=== PATIENT | male | born 1940 | race Caucasian/White ===

== ENCOUNTER 2020-10-10 14:28 | Observation (INO) | payer MEDICARE ==
[~2020-10-10] VITALS: Ht 172.7 cm; Wt 77.4 kg
[2020-10-10] MEDS ORDERED: ASPIRIN81 MG PO (14:49)
[2020-10-10] MEDS ORDERED: METOPROLOL SUCC50 MG PO (14:50)
[2020-10-10] MEDS ORDERED: LOMOTIL TABLET1 EACH PO (14:51)
[2020-10-10] MEDS ORDERED: FLOMAX0.4 MG PO (14:51)
[2020-10-10] MEDS ORDERED: ZESTRIL40 MG PO (17:12)
[2020-10-10] MEDS ORDERED: TRAZODONE HCL50 MG PO (17:13)
[2020-10-10] MEDS ORDERED: NEURONTIN600 MG PO (17:13)
[2020-10-10] MEDS ORDERED: ATORVASTATIN CA40 MG PO (17:14)
[2020-10-10] MEDS ORDERED: PROSCAR5 MG PO (17:14)
--- NOTE | 2020-10-10 20:12 | NUR ---
10/10/202011 Mayberry,Annabella Doherty 2010: O2 MASK OFF. PATIENT ON ROOM AIR. DENIES PAIN.
--- NOTE | 2020-10-10 20:53 | NUR ---
PT TO ROOM 112 WITH PACU NURSE. ALERT AND ORIENTED. DENIES PAIN OR NAUSEA. LAP SITES X 3 WITH GAUZE AND TAPE INTACT. SMALL AMOUNT DRAINAGE FROM UMBILICUS. SCD'S IN PLACE. IVF INFUSING. ASSESSMENT COMPLETE. PT ORIENTED TO ROOM AND NURSE CALL LIGHT. PT DENIES QUESTIONS OR CONCERNS. CALL LIGHT IN REACH.
--- NOTE | 2020-10-10 20:55 | NUR ---
PT REMOVED HEARING AIDES, STATING HE DID NOT BRING THE DECOMMISSIONING WELL SITE MANAGER. PLUGGED IN PHONE DECOMMISSIONING WELL SITE MANAGER. PT HAD BEEN HEARD ON THE PHONE TELLING SOMEONE THAT HE IS NOT HAVING ANY PAIN, AND "HOPES TO GO HOME TOMORROW". ALL PERSONAL SUPPLIES WITHIN REACH AT THIS TIME. EDUCATED ON THE CALL LIGHT, AND EDUCATED HIM ON NOT GETTING UP WITHOUT STAFF AT THIS TIME. STATED LESS THAN HAPPY WITH NO BEING ABLE TO GET UP ON HIS OWN" REPORTED TO PT RN.
--- NOTE | 2020-10-10 21:45 | NUR ---
POST OP VS DONE. PT REPORTS PAIN TOLERABLE, DENIES PRN FOR PAIN. DENIES NAUSEA. IV ABX INFUSING. CLEAR LIQUIDS PROVIDED.
--- NOTE | 2020-10-10 23:15 | NUR ---
POST OP VS DONE. PT UP TO AMB ONE LAP AROUND NURSING UNIT. GIDEON WELL. RATES ABD PAIN 08/02. DENIES PRN FOR PAIN AT THIS TIME. DENIES NAUSEA. TO BR TO VOID 150 CONCENTRATED URINE. BACK TO BED. SCD'S IN PLACE. IVF INFUSING ORDERED. NO FURTHER NEEDS. CALL LIGHT IN REACH.
--- NOTE | 2020-10-10 23:58 | NUR ---
OFFER PT SOMETHING IN FULL LIQUIDS, CHOSE VANILLA PUDDING. POST SURGERY VITALS COMPLETE. DENIES NEED FOR PAIN MEDICATIONS.
--- NOTE | 2020-10-11 01:25 | NUR ---
PT AWAKE IN BED. IV PUMP ALARMING. UP TO AMB ONE LAP AROUND NURSING UNIT. GAIT STEADY. TO BR TO VOID. BACK TO BED, GIDEON WELL. FULL LIQUIDS PROVIDED. PT DENIES PAIN OR NAUSEA. NO FURTHER NEEDS.
--- NOTE | 2020-10-11 02:35 | NUR ---
PT AWAKENED FOR VS. DENIES PAIN OR NAUSEA. SCD'S IN PLACE. IVF INFUSING.
--- NOTE | 2020-10-11 05:57 | CONS ---
[facility] [address], [place] [address] Signed DATE OF CONSULTATION: 10/10/2020 CHIEF COMPLAINT: Right lower quadrant abdominal pain. HISTORY OF PRESENT ILLNESS: Radu is an 80-year-old retired gentleman, who came through our area on his way to [place]. He is on the way back in his motor home with his . His had gotten COVID early in the year and was quite sick. She can barely walk, but she is able to travel with him. He wad tested positive for COVID back in May 2020. He never seemed to really have any symptoms. In the meantime, he has received the Moderna COVID vaccine. This morning, he woke up with periumbilical pain and is now localized to the right lower quadrant. He came to the local emergency room for evaluation. White count was elevated at 12.4. Other labs are negative. His repeat COVID test is still pending, although it has been sent to the lab. He had a CT scan of abdomen and pelvis done and sure enough he does have a dilated thickened appendix along with stone in the appendix and a small umbilical hernia. Therefore, I was asked to see him as a general surgeon on-call here in the emergency room. He did receive Rocephin and Flagyl. PAST MEDICAL HISTORY: Umbilical hernia, diverticulosis, melanoma, and COVID in May 2020. PAST SURGICAL HISTORY: Includes a cholecystectomy, a total left knee replacement, left elbow surgery, and tonsils. SOCIAL HISTORY: He does not smoke. He likes to drink every day. He is a retired longshoreman. He is to his , Alejandro at [phone]. Dr. Luis Hollis is his primary care provider in [place], [place] associated with [place], [place]. They have two children. FAMILY HISTORY: Brother suddenly in 2017. Mother had liver cancer. Dad had stroke. REVIEW OF SYSTEMS: He had 10 systems reviewed. He mentioned his left knee replacement. ALLERGIES: None. MEDICATIONS: Aspirin, metoprolol, Lomotil, and Flomax. Electronically Signed By: LAWRENCE BAJWA MD 10/11/20 0557 PATIENT NAME: RADU PROCTOR CONSULTATION DATE OF : 38 REPORT #: [id number] PHYSICIAN: LAWRENCE BAJWA MD PCP: OTHER PCP REPORT IS CONFIDENTIAL AND NOT TO BE RELEASED WITHOUT AUTHORIZATION [facility] [address], [place] [address] Signed PHYSICAL EXAMINATION: VITAL SIGNS: His blood pressure 156/71, his heart rate 73, his respiratory rate is 16, his temperature is 98.7, he is 98% on room air. He is 5 feet 8 inches, at 77 kg. GENERAL: The patient is an 80-year-old gentleman, lying supine in his ER bed, watching TV. He does not appear systemically ill or toxic. He is a good historian. LUNGS: Clear to auscultation bilaterally. HEART: Regular rate and rhythm. ABDOMEN: Soft and flat but he is tender just below McBurney's point. LABORATORY DATA: His white blood cell count 12.4, hemoglobin 14, neutrophils 85. His electrolytes are unremarkable. His liver function tests are negative. His albumin is 4.2. The COVID test has been drawn, but pending. RADIOGRAPHIC STUDIES: CT scan of abdomen and pelvis is reviewed. He has a small umbilical hernia with a dilated thickened appendix and a stone inside the appendix. He also has some diverticulosis. ASSESSMENT/PLAN: Radu is an 80-year-old gentleman, who presents with acute appendicitis. He is going to be admitted, given IV fluids and antibiotics. He will be taken into the operating room here this evening after the COVID test returns here shortly. I reviewed the location of function of the appendix with him. I have reviewed laparoscopic versus open cholecystectomy. We have reviewed the expected intraop and postop course. He knows there is risk including, but not limited to bleeding, infection, scarring, change in contour of the skin, damage to bowel, appendiceal stump leak, postoperative intraabdominal abscess, incisional hernias, and other unforeseen comorbidities. He has expressed understanding and would like to proceed. Lawrence Bajwa MD ALB/MODL /[id number] cc: Lawrence Bajwa MD Electronically Signed By: LAWRENCE BAJWA MD 10/11/20 0557 PATIENT NAME: RADU PROCTOR CONSULTATION DATE OF : 38 REPORT #: [id number] PHYSICIAN: LAWRENCE BAJWA MD PCP: OTHER PCP REPORT IS CONFIDENTIAL AND NOT TO BE RELEASED WITHOUT AUTHORIZATION [address] [address] Signed MD [place] [employer] Copies: LAWRENCE BAJWA MD ~ Electronically Signed By: LAWRENCE BAJWA MD 10/11/20 0557 PATIENT NAME: RADU PROCTOR CONSULTATION DATE OF : 38 REPORT #: [id number] PHYSICIAN: LAWRENCE BAJWA MD PCP: OTHER PCP REPORT IS CONFIDENTIAL AND NOT TO BE RELEASED WITHOUT AUTHORIZATION
--- NOTE | 2020-10-11 05:57 | OR ---
[facility] [address], [place] [address] Signed DATE OF OPERATION: 10/10/2020 SURGEON: Lawrence Emanuel MD PREOPERATIVE DIAGNOSES: 1. Acute appendicitis. 2. Appendicolith. POSTOPERATIVE DIAGNOSES: 1. Acute appendicitis. 2. Appendicolith. PROCEDURE: Laparoscopic appendectomy. ESTIMATED BLOOD LOSS: Minimal. FINDINGS: Radu had a necrotic appearing appendix. INDICATIONS: Radu is an 80-year-old gentleman, who was traveling back from [place] to our area. He is in the motor home with his . They [place]. This morning, he woke up with periumbilical pain that is localized to the right lower quadrant. He came to the emergency room for evaluation. He was tender in the right lower quadrant. White count was a little elevated. CT scan confirmed his thickened inflamed appendix with an appendicolith. I was asked to see him in the emergency room. I met with Radu and reviewed the above findings. He told me his had COVID last year. She can walk but not very well. Consequently, [place]. He tested positive for COVID in May of this year and then had Moderna shot afterwards. We tested him today and he is negative. I reviewed with him the location and function of the appendix. We discussed laparoscopic versus open appendectomy. He understands the expected intraop and postop course. We did review the risks including, but not limited to bleeding, infection, scarring, change in contour of the skin, damage to the bowel, appendiceal stump leak, postoperative intraabdominal abscess, incisional hernias and other unforeseen comorbidities. He had expressed understanding and wished to proceed. PROCEDURE NOTE: Electronically Signed By: LAWRENCE EMANUEL MD 10/11/20 0557 PATIENT NAME: RADU PROCTOR OPERATIVE REPORT DATE OF : 38 REPORT #: [id number] PHYSICIAN: LAWRENCE EMANUEL MD PCP: OTHER PCP REPORT IS CONFIDENTIAL AND NOT TO BE RELEASED WITHOUT AUTHORIZATION [facility] [address], [place] [address] Signed Radu was taken into our operating room and placed in the supine position under general endotracheal tube anesthesia. He was on preoperative antibiotics. He was given subcutaneous heparin. SCDs were utilized. A Talley catheter was inserted with return of clear yellow urine without difficulty. He was prepped and draped in the usual sterile fashion. All trocars were placed in usual positions under direct visualization of the camera without difficulty. The appendix was easily elevated and we the mesentery from the base of the appendix with the help of the cautery. The appendix was divided from the cecum with the help of the linear stapler. We then divided the mesoappendix with a vascular load on linear stapler. The appendix was placed into an EndoCatch bag and taken out through the right subcostal trocar site. We used our laparoscopic suturing device to pass 0-Vicryl suture x2 on either side of the fascia of the right subcostal trocar site. This was tied down to close this fascia primarily. After this, the gas was allowed to escape and all trocars were removed. Radu also had a small umbilical hernia which we discussed preoperatively. I explained him we would use that for our Sherice trocar and we would simply close that primarily at the end of the case. We used a #1 Prolene in a running fashion and close his umbilical fascial defect transversely and local anesthetic was then injected into all three trocar sites. Each trocar site was irrigated and suctioned out until clear. We brought the umbilical skin down the midline fascia with an interrupted 2-0 PDS suture. The skin and dermis were then reapproximated with interrupted 3-0 subcuticular Monocryl sutures on all three trocar sites. Dry gauze and tape were applied to all three incisions. The Talley catheter was removed without difficulty. He was awakened from his anesthesia, extubated in the OR, and taken to recovery room in stable condition. Lawrence Emanuel MD ALB/MODL /[id number] cc: Lawrence Emanuel MD Copies: LAWRENCE EMANUEL MD ~ Electronically Signed By: LAWRENCE EMANUEL MD 10/11/20 0557 PATIENT NAME: RADU PROCTOR OPERATIVE REPORT DATE OF : 38 REPORT #: [id number] PHYSICIAN: LAWRENCE EMANUEL MD PCP: OTHER PCP REPORT IS CONFIDENTIAL AND NOT TO BE RELEASED WITHOUT AUTHORIZATION
--- NOTE | 2020-10-11 06:03 | NUR ---
VS AND I&O COMPLETE. UP TO BR TO VOID 100 ML CONCENTRATED URINE. PT REPORTS BURNING WITH URINATION. DISCUSSED VALADEZ USE DURING PROCEDURE MIGHT CAUSE IRRITATION. PT BLADDER SCANNED DUE TO FREQUENT SMALL VOIDS. DOES NOT APPEAR PT RETAINING URINE. PT DENIES PAIN OR NAUSEA. LAP SITES X 3 WITH SCANT AMOUNT SEROSANG DRAINAGE. ABD SOFT. BOWEL TONES ACTIVE. PT REPORTS FLATUS. COFFEE AND BREAKFAST MENU PROVIDED. IV ABX INFUSING ORDERED. NO FURTHER NEEDS.
--- NOTE | 2020-10-11 07:30 | NUR ---
RECEIVED REPORT AROUND 0700. PT WAS AWAKE IN BED READY FOR A WALK. PT DID WALK THE HALLWAY. PT HAD NO NEEDS OR CONCENRNS AT THAT TIME.
--- NOTE | 2020-10-11 09:11 | NUR ---
PATIENT FINISHED WITH BREAKFAST, VITALS AND I&OS CHARTED. PATIENT HAS BEEN UP AND AMBULATING HALLS ALREADY THIS MORNING. WASHCLOTH FOR HANDS AND FACE, FRESH ICE WATER PROVIDED. CALL LIGHT IN REACH
--- NOTE | 2020-10-11 09:15 | NUR ---
PT IS DOING WELL. ABD SOUNDS PRESENT, PT IS PASSING FLATUS. LOBES ARE CLEAR, V/S WDL OVERALL. PT DENIES PAIN AND N/V, PT IS TOLERATING FOOD WELL. WILL MONITOR URINE OUTPUT. NO NEW CONCERNS NOTED AT THIS TIME.
--- NOTE | 2020-10-11 09:45 | NUR ---
DRESSINGS ON LAP SITES WERE REMOVED. INCISIONS LOOK GOOD.
--- NOTE | 2020-10-11 10:10 | NUR ---
Pt. lives in [place] and was staying at the [facility]. Will dc to and plans on driving home tomorrow with his . Pt lives in [address]. Does not use any DME. I received a call from [place] and was given the phone number to call and schedule fu appt. They request the fu appt to be within 7 days and it maybe a telephone call if pt desires. Pt denies any issues or needs. Will dc after lunch today.
--- NOTE | 2020-10-11 10:44 | NUR ---
PT SHOWERED AND IS WALKING THE HALLWAY AGAIN. NO NEW CONCERNS NOTED AT THIS TIME.
--- NOTE | 2020-10-11 11:35 | NUR ---
Called and scheduled fu appt for October [address] at [address] Hollis through [facility] after speaking with pt about his preference for appt.
--- NOTE | 2020-10-11 12:00 | NUR ---
PT TOLERATED LUNCH WELL. WILL CALL MD BAJWA FOR D/C ORDER. GETTING PT NOW READY FOR D/C.
--- NOTE | 2020-10-12 11:05 | PATH ---
[facility] [address] [facility] [place] [address] Signed SPECIMEN(S): A APPENDIX SPECIMEN SOURCE: A. APPENDIX CLINICAL HISTORY: Acute appendicitis. FINAL PATHOLOGIC DIAGNOSIS: Appendix, appendectomy: - Acute appendicitis. NAL:cml:C2NR MICROSCOPIC EXAMINATION: Histologic sections of all submitted blocks are examined by light microscopy. These findings, together with the gross examination, support the pathologic diagnosis. GROSS DESCRIPTION: The specimen, labeled "GD, appendix," is received in formalin and consists of Specimen: Appendix with mesoappendix. Dimensions: 11.5 x 0.9 cm. Serosa: Mccoll-red, focally congested and partially covered with yellow-garcia, adherent, plaque-like material. Defect: Not grossly identified. Inking: Staple line is inked black. Mucosa: Mccoll-red. Fecalith: Not grossly identified. Additional: None. Loom Winder Tender sections are submitted in cassette (A1). JS (under the direct supervision of a pathologist) The Gross Description was prepared using a voice recognition system. The report was reviewed for accuracy; however, sound-alike word errors, addition and/or deletions may occur. If there is any question about this report, please contact Client Services. PERFORMING LABORATORY: The technical component was performed by [facility], [address] [place] [id number] (Warhead Maintenance Specialist: Cora Trejo MD; CLIA# [id number]). [facility] [address] [facility]. 107, PATIENT NAME: JUAQUIN PROCTOR PATHOLOGY DATE OF : 38 REPORT #: [id number] PHYSICIAN: [facility] PATHOLOGY PCP: OTHER PCP REPORT IS CONFIDENTIAL AND NOT TO BE RELEASED WITHOUT AUTHORIZATION [address] [place] [address] Signed [place] [id number] (CLIA# [id number]). Diagnostician: Carina Rowley MD Pathologist Electronically Signed 10/12/2020 Copies: ~ PATIENT NAME: JUAQUIN PROCTOR PATHOLOGY DATE OF : 38 REPORT #: [id number] PHYSICIAN: [facility] PATHOLOGY PCP: OTHER PCP REPORT IS CONFIDENTIAL AND NOT TO BE RELEASED WITHOUT AUTHORIZATION
== END 2020-10-11 12:48 | disposition home or self-care (01) ==
LOC: ED 14:28 → MS 14:31
PROVIDERS: ADMIT Colon & Rectal Surgery; ATTEND Colon & Rectal Surgery
PROC: 0DTJ4ZZ Resection of Appendix, Percutaneous Endoscopic Approach (ICD-10-PCS; principal; 2020-10-10 18:30)
DX: K35.891 Other acute appendicitis without perforation, with gangrene (principal); K42.9 Umbilical hernia without obstruction or gangrene; Z86.16 Personal history of COVID-19; Z90.49 Acquired absence of other specified parts of digestive tract; Z79.82 Long term (current) use of aspirin; Z79.899 Other long term (current) drug therapy; Z20.822 Contact with and (suspected) exposure to COVID-19
CPT/HCPCS: 00840; 74177; 80053; 81001; 85025; 88304; 96368; 96372; 96375; 96376; 99285-25; G0378; J0131; J0330; J0696; J1100; J1170; J1644; J1885; J2001; J2405; J2704; J3010; J7030; J7121; Q9967; U0003